=== PATIENT | female | born 1970 | race Two or more races ===

== ENCOUNTER 2024-08-27 08:02 | Emergency (ER) | payer MEDICAID, SELFPAY ==
[2024-08-27 08:06] VITALS: BMI 24.4
[2024-08-27 08:09] VITALS: BP 147/84; PULSE 88; RESP 16; TEMP 36.7; O2SAT 100
--- NOTE | 2024-08-27 08:15 | XR_ITS ---
Examination: CT maxillofacial, without intravenous contrast. 2-D sagittal reconstructions. 3-D reconstructions. Date and time of exam:August 27, 2024 0830 hours INDICATIONS: Injury to the face today, facial pain CTDI: vol (mGy):18.3 DLP: (mGycm):321 Technique: Multiple axial images of maxillofacial region, 3.0 mm slice thickness. 2-D sagittal and coronal reconstructions. 3-D reconstructions. Low dose protocols were performed. One or more of the following dose reduction techniques were used; automated exposure control, adjustment of the mA and/or KV according to patient size, use of iterative reconstruction technique. Findings: Frontal bone frontal sinuses intact Orbital rims intact No nasal bone fracture Maxilla mandible intact IMPRESSION: No acute facial fracture.
--- NOTE | 2024-08-27 08:15 | XR_ITS ---
Examination: CT brain head without contrast. 2-D sagittal coronal reconstructions Date and time of exam:August 27, 2024 0830 hours INDICATIONS: Patient slipped and fell today with injury to the head, head pain CTDI: vol (mGy):47.8 DLP: (mGycm):889 Technique: Multiple CT axial sections of the brain have been obtained, 5 mm slice thickness. Contrast has not been administered. 2-D sagittal, coronal reconstructions have been obtained Low dose protocols were performed. One or more of the following dose reduction techniques were used; automated exposure control, adjustment of the mA and/or KV according to patient size, use of iterative reconstruction technique. Findings: No significant ventricular enlargement. Intra-axial or extra-axial hemorrhage density is not seen. No mass effect or midline shift Basal cisterns are not remarkable. Fourth ventricle is midline. Cranial vault intact. Impression: Negative for acute hemorrhage, mass effect or midline shift
--- NOTE | 2024-08-27 08:15 | XR_ITS ---
Examination: CT cervical spine without contrast 2-D sagittal reconstructions 2-D coronal reconstructions 3-D reconstructions. Exam date and time:August 27, 2024 0830 hours INDICATIONS: Patient fell today with injury to the neck, neck pain CTDI:vol (mGy) 12.4 DLP: (mGycm) 261 Technique: Multiple 2 mm axial sections of the cervical spine have been obtained. The coronal and sagittal reconstructions have been obtained. 3-D reconstructions have been obtained. Low dose protocols were performed. One or more of the following dose reduction techniques were used; automated exposure control, adjustment of the mA and/or KV according to patient size, use of iterative reconstruction technique. Findings: Axial sections demonstrate intact base of the skull. C1 exhibit satisfactory relationship to the odontoid. No acute cervical vertebral body fracture seen. Alignment posterior spinous processes satisfactory. Impression: No acute cervical fracture.
[2024-08-27] MEDS: ACETAMINOPHEN 500 MG TABLET 1000 MG PO (08:25)
[2024-08-27] MEDS: DIPHTH,PERTUSS(ACELL),TET VAC 0.5 ML VIAL IMi (08:27)
--- NOTE | 2024-08-27 09:10 | XR_ITS ---
Examination: Shoulder,left, 3 views Technique: Shoulder AP internal rotation, AP external rotation, Y view shoulder, 3 views Exam date and time :August 27, 2024 0931 hours INDICATIONS: Patient fell today with injury to the shoulder, shoulder pain. FINDINGS: Severe osteopenia No shoulder fracture or dislocation Significant narrowing glenohumeral joint IMPRESSION: No shoulder fracture or dislocation
--- NOTE | 2024-08-27 11:41 | EDNOTE_ITS ---
ED Fall Injury RME/HPI General Chief Complaint: Fall Stated Complaint: fall with left sided facial pain Time Seen by Provider: 08/27/24 08:03 Arrival date/time: 08/27/24 08:02 54-year-old female presents emergency department today complaints of ground- level trip and fall today patient reports left-sided facial pain as well as left shoulder pain and neck pain. Patient ports no loss of consciousness no vomiting patient ports no dizziness or weakness. Patient reports no disturbances in vision Limitations: no limitations Related Data Home Medications ?Medication ?Instructions ?Recorded ?Confirmed metformin 1,000 mg tablet 1,000 mg PO BID 04/07/18 11/07/19 aspirin 81 mg tablet,delayed 81 mg PO QDAY 12/16/18 11/07/19 release (Aspir-) glimepiride 2 mg tablet (Amaryl) 2 mg PO BID 12/16/18 11/07/19 pioglitazone 15 mg tablet 15 mg PO QDAY 12/16/18 11/07/19 ibuprofen 600 mg tablet 600 mg PO Q8H PRN Pain 11/07/19 11/07/19 oseltamivir 75 mg capsule (Tamiflu) 75 mg PO BID 11/07/19 11/07/19 Previous Rx's ?Medication ?Instructions ?Recorded ibuprofen 800 mg tablet 800 mg PO Q8H PRN pain #20 tabs 11/07/19 diphenhydramine HCl 25 mg capsule 25 mg PO TID PRN itching #10 caps 01/07/24 (Benadryl) ibuprofen 600 mg tablet 600 mg PO Q6H #30 tabs 08/27/24 Allergies Allergy/AdvReac Type Severity Reaction Status Date / Time No Known Allergies Allergy Verified 08/27/24 08:03 Review of Systems Review of Systems Systems Reviewed: All systems reviewed, normal except as documented Constitutional Constitutional: Reports system reviewed and no additional complaints, except as documented, Denies fever(s) and Denies headache(s) Eyes Eyes: Reports system reviewed and no additional complaints, except as documented and Denies blurry vision ENT Ears, Nose, Mouth, and Throat: Reports system reviewed and no additional complaints, except as documented, Denies headache(s), Denies nasal congestion and Denies nasal discharge Cardiovascular Cardiovascular: Reports system reviewed and no additional complaints, except as documented, Denies chest pain and Denies dyspnea Respiratory Respiratory: Reports system reviewed and no additional complaints, except as documented, Denies chest congestion, Denies cough and Denies dyspnea Gastrointestinal Gastrointestinal: Reports system reviewed and no additional complaints, except as documented and Denies abdominal pain Integumentary/Breasts Skin/Breast: Reports system reviewed and no additional complaints, except as documented, Denies rash and Reports wounds (Abrasion facial) Neurologic Neurologic: Reports system reviewed and no additional complaints, except as documented, Reports as per HPI and Denies headache(s) Past Medical History Past Medical History CARDIAC: Negative Cardiac Disorders or Congestive Heart Failure RESPIRATORY: Negative Chronic Obstructive Pulmonary Disease (COPD) or Asthma GENITOURINARY: Negative Renal Disease ENDOCRINE: Positive Diabetes Mellitus Type 2; Negative Diabetes Mellitus Type 1 HEMATOLOGIC: Negative Sickle Cell Disease Surgical History SURGICAL: Positive Section Social History SMOKING STATUS: Never smoker ED Exam General Limitations: Present no limitations General appearance: Present alert and in no apparent distress Head Head exam: Present other (Mild swelling nose, abrasion) Eye Eye exam: Present normal appearance, PERRL and EOMI ENT ENT exam: Present normal exam, normal oropharynx and mucous membranes moist Neck Neck exam: Present normal inspection, full ROM and trachea midline Chest Chest inspection: Present normal inspection and symmetric chest wall rise Respiratory Respiratory exam: Present normal lung sounds bilaterally Cardiovascular Cardiovascular exam: Present regular rate, normal rhythm and normal heart sounds Abdominal Exam Abdominal exam: Present soft and normal bowel sounds Extremities Exam Extremities exam: Present normal inspection and full ROM Back Exam Back exam: Present normal inspection and full ROM Neurological Exam Neurological exam: Present alert, oriented X3, CN II-XII intact, normal gait and reflexes normal; Absent motor sensory deficit Psychiatric Psychiatric exam: Present normal affect and normal mood Skin Skin exam: Present warm, dry and other (Abrasion facial) Course Quality Measures none Orders Category Date Time Status CT cervical spine wo con Stat Exams 08/27/24 08:[address] facial bones wo con Stat Exams 08/27/24 08:[address] head/brain wo con Stat Exams 08/27/24 08:15 Completed XR shoulder LT min 2V Stat Exams 08/27/24 09:10 Taken Acetaminophen Tab [Tylenol ES Tab] Med 08/27/24 08:15 Discontinued 1,000 mg PO X1 ONE Tet,Diphth,Pertuss(Acell)-Tdap [Boostrix Vacc] Med 08/27/24 08:15 Discontinued 0.5 ml IMI .ONCE ONE Vital Signs Vital signs: Vital Signs Temperature 98.1 F 08/27/24 08:09 Pulse Rate 88 08/27/24 08:09 Respiratory Rate 16 08/27/24 08:09 Blood Pressure 147/84 H 08/27/24 08:09 Pulse Oximetry (%) 100 08/27/24 08:09 Oxygen Delivery Method Room Air 08/27/24 08:09 O2 saturation 100% room air within normal limits Fall MDM Narrative MDM Narrative:: 54-year-old female presents emergency department today complaints of ground- level trip and fall today patient reports left-sided facial pain as well as left shoulder pain and neck pain. Patient ports no loss of consciousness no vomiting patient ports no dizziness or weakness. Patient reports no disturbances in vision On exam patient well-appearing patient walks with steady gait On exam patient is abrasion to the bridge of her nose patient does have bruising left side of the nose and left infraorbital region Eye exam is normal no foreign bodies noted CT scan as well as x-rays obtained Patient discharged home in no distress to follow-up with primary care doctor in the next 24 to 48 hours and for any worsening symptoms to return to the ER immediately Patient data External records reviewed:: [facility] previous records Clinical information provided by:: patient Social determinants that could affect healthcare access:: none Patient has the following chronic illnesses:: None How is presenting disease/condition affected by chronic disease/condition?: no chronic disease Evaluation data The following diagnostics were reviewed and interpreted by me:: radiology exam(s) Lab and/or radiology exams considered but not ordered:: Radiology obtain Interpretation Summary: Reviewed by me Medications / Prescriptions Medications or Prescriptions considered but not ordered:: Given Medication administrations:: Medication Administration History Discontinued Medications Acetaminophen (Acetaminophen 500 Mg Tablet) 1,000 mg PO X1 ONE Stop: 08/27/24 08:16 Last Admin: 08/27/24 08:25 Dose: 1,000 mg Documented By: ED Diphtheria/Tetanus/Acell Pertussis (Diphth,Pertuss(Acell),Tet Vac 0.5 Ml Vial) 0.5 ml IMi .ONCE ONE Stop: 08/27/24 08:16 Last Admin: 08/27/24 08:27 Dose: 0.5 ml Documented By: ED Given Consultations Consultation(s) initiated? (list below): No Diagnosis Fall Differential Diagnosis: concussion with loss of consciousness, concussion without loss of consciousness and other (Closed injury, facial fracture) Most likely diagnosis given after review of the tests above:: Facial injury, abrasion, fall Admission Indicated Admission indicated?: not indicated Admission Request Was there a request for admission?: No Disposition Plan Disposition Plan: Discharge Discharge Attestation Discharge Attestation: The patient and all family members were given an opportunity to ask questions and understood the discharge instructions. Discharge instructions specifically effects, indications for sooner follow up or return to the emergency department, and the expected course of current diagnosis. Patient condition: Stable Discharge Plan Plan Patient Disposition: HOME (Self Care) Disposition Comment: Stable Prescriptions/Referrals Prescriptions/Med Rec: New ibuprofen 600 mg tablet 600 mg PO Q6H Qty: 30 0RF No Action metformin 1,000 mg Tablet 1,000 mg PO BID pioglitazone 15 mg Tablet 15 mg PO QDAY aspirin [Aspir-81] 81 mg Tablet,Delayed Release (Dr/Ec) 81 mg PO QDAY glimepiride [Amaryl] 2 mg Tablet 2 mg PO BID oseltamivir [Tamiflu] 75 mg Capsule 75 mg PO BID ibuprofen 600 mg Tablet 600 mg PO Q8H PRN (Reason: Pain) ibuprofen 800 mg tablet 800 mg PO Q8H PRN (Reason: pain) Qty: 20 0RF diphenhydramine HCl [Benadryl] 25 mg capsule 25 mg PO TID PRN (Reason: itching) Qty: 10 0RF Referrals: Demetri Lam MD [Primary Care Provider] - In 1 week Problem List Clinical Impression: Fall, Facial trauma Patient/Caregiver Discharge Instructions Education Materials: Staff Ed: When a Patient Falls Additional Instructions: Please follow up with your primary care doctor in the next 24-48hrs for any worsening symptoms return here immediately Print Language: Lithuanian Stand Alone Forms: Antoinette Award Info., Work/School Release, Patient Portal Info Letter PA/ALISSA Supervising Physician ADAN/ALISSA Supervising Physician: Dr Gómez
== END 2024-08-27 11:50 | disposition home or self-care (01) ==
PROVIDERS: Emergency Provider Emergency Medicine; PCP Internal Medicine
DX: S00.31XA Abrasion of nose, initial encounter (principal); S00.33XA Contusion of nose, initial encounter; S19.9XXA Unspecified injury of neck, initial encounter; S09.90XA Unspecified injury of head, initial encounter; S49.92XA Unspecified injury of left shoulder and upper arm, initial encounter; W01.0XXA Fall on same level from slipping, tripping and stumbling without subsequent striking against object, initial encounter; Z23 Encounter for immunization
CPT/HCPCS: 70450; 70486; 72125; 73030; 90471; 90715; 99284; A9270